=== PATIENT | male | born 1975 | race African-American/Black ===

== ENCOUNTER 2017-09-16 11:27 | Emergency (ER) | payer MEDICAID, OTHER ==
[~2017-09-16] VITALS: Ht 188 cm; Wt 96.4 kg
[2017-09-16 11:30] VITALS: BP 153/83
== END 2017-09-16 12:56 | disposition home or self-care (01) ==
LOC: ED 12:30
DX: Z00.00 Encounter for general adult medical examination without abnormal findings (principal); I10 Essential (primary) hypertension
CPT/HCPCS: 71020; 99284

== ENCOUNTER 2017-10-03 09:18 | Emergency (ER) | payer MEDICAID ==
[~2017-10-03] VITALS: Ht 188 cm; Wt 93.6 kg
[2017-10-03] MEDS ORDERED: ALBUTEROL/IPRATROPIUM 2.5MG/0.5MG, 3 ML NPPB ONE (10:00)
[2017-10-03] MEDS ORDERED: ALBUTEROL/IPRATROPIUM 2.5MG/0.5MG, 3 ML ONE (10:11)
[2017-10-03 11:22] VITALS: BP 148/94
== END 2017-10-03 11:46 | disposition home or self-care (01) ==
LOC: ED 09:52
DX: J20.9 Acute bronchitis, unspecified (principal); I10 Essential (primary) hypertension; F17.210 Nicotine dependence, cigarettes, uncomplicated
CPT/HCPCS: 71010; 93005; 94640; 99284; J7512; J7620

== ENCOUNTER 2018-09-09 10:04 | Emergency (ER) | payer MEDICAID ==
[~2018-09-09] VITALS: Ht 188 cm; Wt 89.6 kg
[2018-09-09 10:06] VITALS: BP 134/95
[2018-09-09] MEDS ORDERED: FAMOTIDINE 20 MG TABLET ONE ×2 (10:27→10:31)
[2018-09-09] MEDS ORDERED: ALBUTEROL/IPRATROPIUM 2.5MG/0.5MG, 3 ML NPPB ONE (10:30)
[2018-09-09] MEDS ORDERED: FAMOTIDINE 20 MG TABLET PO ONE (10:30)
[2018-09-09] MEDS ORDERED: ALBUTEROL/IPRATROPIUM 2.5MG/0.5MG, 3 ML ONE (10:32)
== END 2018-09-09 11:35 | disposition home or self-care (01) ==
LOC: ED 10:25
DX: J45.31 Mild persistent asthma with (acute) exacerbation (principal); L23.9 Allergic contact dermatitis, unspecified cause; I10 Essential (primary) hypertension
CPT/HCPCS: 93005; 94640; 99284; J7512; J7620; Q0177